=== PATIENT | female | born 1980 | race Caucasian/White ===

== ENCOUNTER 2022-07-02 13:08 | Emergency (ER) | payer OTHER, SELFPAY ==
[2022-07-02 13:18] VITALS: BP 122/76; PULSE 85; RESP 16; TEMP 36.3; O2SAT 96
--- NOTE | 2022-07-02 13:51 | W.ED.GENAD ---
Discharge Plan Discharge Details Chief Complaint: Orthopedic Clinical Impression: Acute pain of right knee Primary Care Provider: [facility] Provider: Ross Shankar Home Meds and New Rx's Prescriptions: No Action ketorolac 10 mg tablet 10 mg PO DAILY PRN (Reason: pain) Qty: 15 1RF Aimovig Autoinjector 70 mg/mL auto-injector 140 mg SC QMONTH Label Comments: 07/06/21 Per pt. 140 mg [facility]. meclizine 25 mg tablet,chewable 25 mg PO BID valacyclovir [Valtrex] 500 MG tablet 500 mg PO DAILY methocarbamol 500 mg tablet 750 mg PO QID PRN albuterol sulfate 90 mcg/actuation HFA aerosol inhaler 2 puff IH QID PRN duloxetine [Cymbalta] 30 mg capsule,delayed release(DR/EC) 120 mg PO DAILY omeprazole 20 mg Tablet,Delayed Release (Dr/Ec) 20 mg PO DAILY Medical Decision Making 41-year-old female presents today for evaluation of right-sided knee pain. Patient states that 3 days ago on Saturday she was walking slipped and hit her knee on the corner of a stack of plywood. She has had pain since then. Had notable swelling. She has been taking Tylenol and Motrin without improvement. She denies numbness or tingling. She has pain with ambulation. No other complaints at this time. No radiation of the pain otherwise. Patient demonstrates swelling and mild edema just below the knee on the right. Mild bruising there as well. Tenderness over the right proximal nava as well as the tibial plateau on the medial and lateral component. No tenderness over the patella or the distal femur. Concern for potential tibial plateau injury versus notable bony contusion. We will get an x-ray for further evaluation,, monitor closely and reassess. 3:04 PM X-ray negative for acute process however the patient's notable pain especially with ambulation I do feel that we need to definitively rule out a tibial plateau fracture. We will get a noncontrast CT scan. My colleague Dr. Shah will follow-up on the results. FINDINGS: BONES: No acute fracture is present. No bony destructive lesion is seen. JOINTS: The knee is normally aligned. No joint effusion is seen. SOFT TISSUE: Normal. IMPRESSION: Unremarkable radiographs of the right knee. Sign Out Yes HPI General Date/Time Provider Initiated Documentation: 07/02/22 13:15. HPI Narrative: 41-year-old female presents today for evaluation of right-sided knee pain. Patient states that 3 days ago on Saturday she was walking slipped and hit her knee on the corner of a stack of plywood. She has had pain since then. Had notable swelling. She has been taking Tylenol and Motrin without improvement. She denies numbness or tingling. She has pain with ambulation. No other complaints at this time. No radiation of the pain otherwise. Related Data Home Medications Medication Instructions Recorded Confirmed valacyclovir 500 mg tablet 500 mg PO DAILY 12/23/15 07/02/22 (Valtrex) albuterol sulfate 90 mcg/actuation 2 puff inhalation QID PRN 09/03/19 07/06/20 aerosol inhaler methocarbamol 500 mg tablet 750 mg PO QID PRN 09/03/19 07/02/22 duloxetine 30 mg capsule,delayed 120 mg PO DAILY 09/15/19 07/02/22 release (Cymbalta) ketorolac 10 mg tablet 10 mg PO DAILY PRN pain #15 tabs 10/21/19 07/02/22 erenumab-aooe 70 mg/mL 140 mg subcut QMONTH 07/06/20 07/02/22 subcutaneous auto-injector (Aimovig Autoinjector) meclizine 25 mg chewable tablet 25 mg PO BID 07/06/20 07/02/22 omeprazole 20 mg tablet,delayed 20 mg PO DAILY 07/02/22 07/02/22 release Previous Rx's Medication Instructions Recorded ketorolac 10 mg tablet 10 mg PO DAILY PRN pain #15 tabs 10/21/19 Allergies Allergy/AdvReac Type Severity Reaction Status Date / Time quetiapine Allergy Unknown Verified 07/02/22 13:26 Sulfa (Sulfonamide Allergy Verified 07/02/22 13:26 Antibiotics) General Stated Complaint: Orthopedic BRANDON: 4 Review of Systems All systems reviewed & are unremarkable except as noted in HPI and below PFSH All Active Problems (Updated 07/02/22 @ 15:05 by Ross Shankar DO) Acute pain of right knee (Acute) Vertigo (Acute) Migraine headache without aura (Acute) Medical History ADD (attention deficit disorder) Anogenital herpes simplex virus (HSV) infection High grade squamous intraepithelial lesion on cytologic smear of cervix (HGSIL) Low back pain Major depressive disorder Nicotine dependence Obstructive sleep apnea PTSD (post-traumatic stress disorder) TBI (traumatic brain injury) Social History Smoking/Tobacco Use Status: Never Smoking risk assessment performed?: Yes Alcohol Intake: current Drug use: Occasionally Substance use type: marijuana Household members: spouse Housing: house Number of Children: 0 current occupation: medical intermediate What is your relationship status?: Panel score (0-1 are the most socially isolated patients): 1 Seatbelt use: always Do you feel safe at home: Yes Do you feel safe in your relationship?: Yes Exam Narrative Exam Narrative: 1.Const: Well-nourished, Well-developed, appearing stated age 2.Eyes: PERRL, no conjunctival injection, and symmetrical lids. 3.ENT: Atraumatic external nose and ears. Moist MM. Neck: Symmetric, trachea midline, No thyromegaly. 4.CVS: +S1/S2, No murmurs or gallops. Peripheral pulses 2+ and equal in all extremities. Brisk capillary refill in all extremities. 5.RESP: Unlabored respiratory effort. Clear to auscultation bilaterally. No wheezes rales or rhonchi 6.GI: Soft, Nontender/Nondistended, No hepatosplenomegaly. No guarding or rebound. 7.MSK: Normocephalic, Extremities w/o deformity. No cyanosis or clubbing, Normal movement of all extremities. Patient demonstrates swelling and mild edema just below the knee on the right. Mild bruising there as well. Tenderness over the right proximal nava as well as the tibial plateau on the medial and lateral component. No tenderness over the patella or the distal femur. Concern for potential tibial plateau injury versus notable bony contusion. 8.Skin: Warm, Dry. No rashes or lesions. 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 Sensation grossly intact, no focal neurologic deficits. 10.Psych: (AAO) x3. Appropriate mood and affect Course Vital Signs Vital signs: Vital Signs Temperature 36.3 C L 07/02/22 13:18 Pulse 85 07/02/22 13:18 Respiratory Rate 16 07/02/22 13:18 Blood Pressure 122/76 07/02/22 13:18 Pulse Oximetry 96 07/02/22 13:18 Temperature 36.3 C L 07/02/22 13:18 Temperature Source Tympanic 07/02/22 13:18 Pulse 85 07/02/22 13:18 Respiratory Rate 16 07/02/22 13:18 Respiratory Effort Non-Labored 07/02/22 13:24 Blood Pressure 122/76 07/02/22 13:18 Blood Pressure Position Sitting 07/02/22 13:18 Pulse Oximetry 96 07/02/22 13:18 Oxygen Delivery Method Room Air 07/02/22 13:18 Oxygen Flow Rate 0 07/02/22 13:18 Pain Level 0 07/02/22 13:24 PAWSS Have you Been Recently Intoxicated or Drunk Within the Last 30 days?: No Have you Ever Experienced Previous Episodes of Alcohol Withdrawal?: No Have you ever Experienced Withdrawal Seizures?: No Have you ever Experienced Delirium Tremens(DT)s?: No Have you ever undergone Alcohol Rehabilitation Treatment (i.e, inpt ot outpatient treatment programs)?: No Have you ever Experienced Blackouts?: No Have you ever Combined Alcohol with other Downers within the last 90 days?: No Have you ever Combined Alcohol with any other Substance of Abuse during the last 90 days?: No Result: 0
[2022-07-02] MEDS: Acetaminophen 500 MG TAB 1000 MG PO (14:00)
[2022-07-02] MEDS: Ibuprofen 800 MG TAB PO (14:00)
--- NOTE | 2022-07-02 14:05 | DI.RAD_ITS ---
Exam(s) XR KNEE RT 3V AP,LAT,JEFFY EXAM: XR KNEE RT 3V AP,LAT,JEFFY CLINICAL HISTORY: fall, pain at medial and lat tib plat. TECHNIQUE: 2D digital imaging was performed. Three views. COMPARISON: No exams were available for comparison FINDINGS: BONES: No acute fracture is present. No bony destructive lesion is seen. JOINTS: The knee is normally aligned. No joint effusion is seen. SOFT TISSUE: Normal. IMPRESSION: Unremarkable radiographs of the right knee. DATA REPOSITORY: RADIATION DOSE DELIVERED:
--- NOTE | 2022-07-02 16:15 | DI.CT_ITS ---
Exam(s) CT LOWER EXTREMITY RT WO EXAM: CT LOWER EXTREMITY RT WO CLINICAL HISTORY: attn knee, suspect tib plat fx. TECHNIQUE: Imaging Protocol: Axial computed tomography images with coronal and sagittal reformatted images were created and reviewed. COMPARISON: CR XR KNEE RT 3V AP,LAT,JEFFY from 07/02/2022 FINDINGS: Bones: The osseous structures and articular surfaces are intact. There is no evidence of fracture or dislocation. Bony alignment is satisfactory. No osteomyelitic changes are identified. There is no evidence of joint space narrowing or cystic degeneration seen. No lytic or sclerotic lesions are marisol ntified. Minimal joint effusion. Soft Tissues: Anterior soft tissue swelling. IMPRESSION: Anterior soft tissue swelling. No evidence of fracture. RADIATION DOSE DELIVERED: 206.3mGy.cm Total DLP 206.3mGy.cm Total DLP DATA REPOSITORY: All CT scans at this facility are submitted to the National Radiology Data Registry (NRDR) Dose Index Registry (DIR) with the [employer] (A[employer]). RADIATION OPTIMIZATION: All CT scans at this facility use at least one of these dose optimization te chniques: automated exposure control; mA and/or kV adjustment per patient size (includes targeted exa ms where dose is matched to clinical indication); or iterative reconstruction.
--- NOTE | 2022-07-02 16:36 | ED.PROG_ITS ---
Date of service: 07/02/22 Time of Service: 15:30 Medical Decision Making 1530 -- please see Dr. Shankar's note for initial presentation, exam and plan. Case endorsed to follow-up on CT lower extremity imaging results. 1630 -- CT negative for fracture. Will place an Kiran wrap and provide crutches. Given orthopedic follow-up information if needed. Usual and customary return precautions given. Medical Records Medical records reviewed: Yes I reviewed the patient's medical records. Imaging Data Radiologic Study: Radiologist's impression: CT LOWER EXTREMITY RT WO CLINICAL HISTORY: ? attn knee, suspect tib plat fx. ? TECHNIQUE:? Imaging Protocol: Axial computed tomography images with coronal and sagittal reformatted images were created and reviewed. COMPARISON:? CR XR KNEE RT 3V AP,LAT,JEFFY from 07/02/2022 FINDINGS: Bones:? The osseous structures and articular surfaces are intact. There is no evidence of fracture or dislocation. Bony alignment is satisfactory.? No? osteomyelitic changes are identified.? There is no evidence of joint space narrowing or cystic degeneration seen. No lytic or sclerotic lesions are identified. ? Minimal joint effusion. Soft Tissues:? Anterior soft tissue swelling. IMPRESSION: Anterior soft tissue swelling.? No evidence of fracture. Sign Out Yes Sign Out Sign Out Data: Sign Out Comment: Right knee pain, x-ray negative, getting CT scan to rule out tibial plateau fracture. Recommend outpatient NSAIDs, crutches. Last updated by Ross Shankar DO at 07/02/22 15:06 Discharge Plan Disposition Patient Disposition: Home Condition: Stable Discharge Details Clinical Impression: Contusion of right knee Primary Care Provider: [facility] Provider: Nona Shah Home Meds and New Rx's Prescriptions: Continued ketorolac 10 mg tablet 10 mg PO DAILY PRN (Reason: pain) Qty: 15 1RF Aimovig Autoinjector 70 mg/mL auto-injector 140 mg SC QMONTH Label Comments: 07/06/21 Per pt. 140 mg monthly [facility]. meclizine 25 mg tablet,chewable 25 mg PO BID valacyclovir [Valtrex] 500 MG tablet 500 mg PO DAILY methocarbamol 500 mg tablet 750 mg PO QID PRN albuterol sulfate 90 mcg/actuation HFA aerosol inhaler 2 puff IH QID PRN duloxetine [Cymbalta] 30 mg capsule,delayed release(DR/EC) 120 mg PO DAILY omeprazole 20 mg Tablet,Delayed Release (Dr/Ec) 20 mg PO DAILY Discharge Instructions Instructions: Knee Pain (ED) Additional Instructions: Your imaging today is reassuring and shows no evidence of fracture. Rest, ice and elevate your right knee as much as possible. Use your crutches to help with ambulation. You can apply an Kiran wrap to help with compression and pain relief. Alternate Tylenol and ibuprofen as needed and directed for pain. Follow-up with your primary care doctor for reevaluation and for referral to orthopedics if needed. Return immediately to the emergency department if you develop any worsening or concerning symptoms. Referrals: Robert Pagan MD [ [facility] STAFF PHYSICIAN] - Discharge Data Discharge Date/Time-TO BE ENTERED AT DEPARTURE: 07/02/22 17:02 Discharge Physician: Nona Shah
== END 2022-07-02 17:02 | disposition home or self-care (01) ==
PROVIDERS: Emergency Provider Physician Assistant; PCP Nurse Practitioner Family
DX: S80.01XA Contusion of right knee, initial encounter (principal); R60.0 Localized edema; W18.40XA Slipping, tripping and stumbling without falling, unspecified, initial encounter; W22.09XA Striking against other stationary object, initial encounter; Y93.01 Activity, walking, marching and hiking
CPT/HCPCS: 73562; 99284; 73700; 99282

== ENCOUNTER 2023-08-16 15:04 | Emergency (ER) | payer OTHER, SELFPAY ==
[2023-08-16 15:11] VITALS: BP 123/90; PULSE 77; RESP 20; TEMP 36.3; O2SAT 98
--- NOTE | 2023-08-16 15:30 | RT.EKG_ITS ---
APPROVED REPORT Exam: Resting ECG Reason for Exam: shortness of breath Patient Location: E HR:72 bpm ECG Measurements Heart Rate 72 AXIS ID 146 P 67 QRSd 80 QRS 21 QT 376 T 25 QTc 412 Conclusion Sinus rhythm...normal P axis, V-rate 60- 99 Low voltage, precordial leads...precordial leads <1.0mV
--- NOTE | 2023-08-16 15:32 | W.ED.GENAD ---
HPI General Stated Complaint: GenMedical Mode of arrival: ambulatory. BRANDON: 3 Date/Time Provider Initiated Documentation: 08/16/23 15:12. Limitations to Documentation: no limitations. Information obtained by: patient. History of Present Illness cough moderate day(s) (3) intermittent No relieving factors improve symptom(s), No exacerbating factors reported cough and shortness of breath; denies chest pain and fever/chills none Related Data Home Medications Medication Instructions Recorded Confirmed valacyclovir 500 mg tablet 500 mg PO DAILY 12/23/15 07/02/22 (Valtrex) albuterol sulfate 90 mcg/actuation 2 puff inhalation QID PRN 09/03/19 07/06/20 aerosol inhaler methocarbamol 500 mg tablet 750 mg PO QID PRN 09/03/19 07/02/22 duloxetine 30 mg capsule,delayed 120 mg PO DAILY 09/15/19 07/02/22 release (Cymbalta) ketorolac 10 mg tablet 10 mg PO DAILY PRN pain #15 tabs 10/21/19 07/02/22 erenumab-aooe 70 mg/mL 140 mg subcut QMONTH 07/06/20 07/02/22 subcutaneous auto-injector (Aimovig Autoinjector) meclizine 25 mg chewable tablet 25 mg PO BID 07/06/20 07/02/22 omeprazole 20 mg tablet,delayed 20 mg PO DAILY 07/02/22 07/02/22 release amoxicillin 875 mg-potassium 1 tab PO BID #14 tabs 08/16/23 clavulanate 125 mg tablet prednisone 20 mg tablet 60 mg (3 x 20 mg) PO DAILY 4 days 08/16/23 #12 tabs Previous Rx's Medication Instructions Recorded ketorolac 10 mg tablet 10 mg PO DAILY PRN pain #15 tabs 10/21/19 amoxicillin 875 mg-potassium 1 tab PO BID #14 tabs 08/16/23 clavulanate 125 mg tablet prednisone 20 mg tablet 60 mg (3 x 20 mg) PO DAILY 4 days 08/16/23 #12 tabs Allergies Allergy/AdvReac Type Severity Reaction Status Date / Time quetiapine Allergy Unknown Verified 07/02/22 13:26 Sulfa (Sulfonamide Allergy Verified 07/02/22 13:26 Antibiotics) Review of Systems All systems reviewed & are unremarkable except as noted in HPI and below Constitutional Constitutional: Denies chills, Denies fever(s) and Denies weakness Cardiovascular Cardiovascular: Denies chest pain and Reports dyspnea Respiratory Respiratory: Reports cough and Reports dyspnea Gastrointestinal Gastrointestinal: Denies abdominal pain, Denies nausea and Denies vomiting Musculoskeletal Musculoskeletal: Denies joint swelling Neurologic Neurologic: Denies weakness PFSH All Active Problems (Updated 08/16/23 @ 17:02 by Dudley Feliz MD) URI (upper respiratory infection) (Acute) Shortness of breath (Acute) Vertigo (Acute) Migraine headache without aura (Acute) Medical History ADD (attention deficit disorder) Anogenital herpes simplex virus (HSV) infection High grade squamous intraepithelial lesion on cytologic smear of cervix (HGSIL) Low back pain Major depressive disorder Nicotine dependence Obstructive sleep apnea PTSD (post-traumatic stress disorder) TBI (traumatic brain injury) Social History Smoking/Tobacco Use Status: Never Smoking risk assessment performed?: Yes Alcohol Intake: current Drug use: Occasionally Substance use type: marijuana Household members: spouse Housing: house Number of Children: 0 current occupation: medical long term What is your relationship status?: Panel score (0-1 are the most socially isolated patients): 1 Seatbelt use: always Do you feel safe at home: Yes Do you feel safe in your relationship?: Yes Course Vital Signs Vital signs: Vital Signs Temperature 36.3 C L 08/16/23 15:11 Pulse 77 08/16/23 15:11 Respiratory Rate 20 08/16/23 15:11 Blood Pressure 123/90 08/16/23 15:11 Pulse Oximetry 98 08/16/23 15:11 Temperature 36.3 C L 08/16/23 15:11 Temperature Source Temporal Artery Scan 08/16/23 15:11 Pulse 77 08/16/23 15:11 Respiratory Rate 20 08/16/23 15:11 Respiratory Effort Normal 08/16/23 15:16 Blood Pressure 123/90 08/16/23 15:11 Blood Pressure Position Sitting 08/16/23 15:11 Pulse Oximetry 98 08/16/23 15:11 Oxygen Delivery Method Room Air 08/16/23 15:11 Oxygen Flow Rate 0 08/16/23 15:11 Medical Decision Making 42 yo female with hx of ptsd, former smoker, who states when she gets sick with uri's she uses inhalers, who comes in with 5 days of ear fullness and malaiase and 3 days of dyspnea and cough. Denies fevers, chills, chest pain. Arrives stable speaking in full sentences. She has apical wheezing bilaterally otherwise clear lungs, no murmurs, soft nontender abdomen, normal appearing tm's bilaterally. Suspect viral uri, will obtain flu and covid poc tests given she has had symptoms for 5 days, and also obtain ekg/troponin given her shortness of breath to evaluate for myocarditis. She is wells low and perc negative so doubt PE. Will give duoneb and solumedrol and check cbc, cmp and obtian cxr to evaluate for infiltrate. labs unremarkable and xray unremarkable, pt feels better wheezing now resolved in apices. Given almost a week of sinusitis symptoms will start on augmentin, she is stable for d/c, advised to f/u with pcp and return precautions given Differential Diagnosis Differential Diagnosis: covid, asthma, pneumonia Medical Records Medical records reviewed: Yes I reviewed the patient's medical records. Imaging Data Radiologic Study: Attestation: I personally reviewed and interpreted this imaging study as follows: Imaging: X-Ray Radiologist's impression: no acute findings Lab Data Lab results reviewed: Yes I reviewed the patient's lab results. ECG Data Attestation: I personally reviewed and interpreted this ECG (s) as follows: Prior ECG tracings: not available for review Interpretation: sinus rate of 72, pr 146 no stemi Quality:SDOH Health Related Social Needs: No Data to Display Discharge Plan Disposition Patient Disposition: Home Condition: Stable Discharge Details Clinical Impression: Shortness of breath, URI (upper respiratory infection) Primary Care Provider: [facility] Provider: Dudley Feliz Home Meds and New Rx's Prescriptions: New prednisone 20 mg tablet 60 mg PO DAILY 4 Days Qty: 12 0RF amoxicillin-pot clavulanate 875-125 mg tablet 1 tab PO BID Qty: 14 0RF Continued ketorolac 10 mg tablet 10 mg PO DAILY PRN (Reason: pain) Qty: 15 1RF Aimovig Autoinjector 70 mg/mL auto-injector 140 mg SC QMONTH Patient Comments: 12/2/21 Per pt. 140 mg monthly [facility]. meclizine 25 mg tablet,chewable 25 mg PO BID valacyclovir [Valtrex] 500 MG tablet 500 mg PO DAILY methocarbamol 500 mg tablet 750 mg PO QID PRN albuterol sulfate 90 mcg/actuation HFA aerosol inhaler 2 puff IH QID PRN duloxetine [Cymbalta] 30 mg capsule,delayed release(DR/EC) 120 mg PO DAILY omeprazole 20 mg Tablet,Delayed Release (Dr/Ec) 20 mg PO DAILY Discharge Instructions Instructions: Upper Respiratory Infection (ED) Additional Instructions: your blood work and xray did not show concerning findings if not feeling better next week follow up with your primary care provider if you feel more ill, have worsening trouble breathing or severe chest pain return to the emergency department
[2023-08-16] MEDS: methylPREDNISolone SUCC 125 MG VIAL IVP (15:46)
[2023-08-16] MEDS: Albuterol/Ipratropium 3 ML UPD VIAL UPD (15:46)
[2023-08-16] MEDS: Normal Saline 1,000 ML 1000 ML IV (15:56)
[2023-08-16 16:02] LABS: Abs Immature Grans 0.03 10^3/uL (0.0-0.06); Absolute Basophil Count 0.05 10^3/uL (0.0-0.2); Absolute Eosinophil Count 0.12 10^3/uL (0.0-0.7); Absolute Lymphocyte Count 1.95 10^3/uL (1.2-3.4); Absolute Monocyte Count 1.03 10^3/uL (0.1-0.8); Absolute Neutrophil Count 3.87 10^3/uL (1.2-6.7); Basophils % 0.7; Eosinophils % 1.7; HCT 39.3 % (36.0-46.0); HGB 13.3 g/dL (11.2-15.7); Immature Grans % 0.4; Lymphocytes % 27.7; MCH 32.7 pg (27.0-33.0); MCHC 33.8 % (32.0-36.0); MCV 97 fL (80-95); MPV 9.2 fL (8.0-11.0); Monocytes % 14.6; Neutrophils % 54.9; Platelet Count 220 10^3/uL (130-400); RBC 4.07 10^6/uL (3.93-5.22); RDW 12.3 % (11.7-14.6); WBC 7.05 10^3/uL (4.4-10.8)
[2023-08-16 16:18] LABS: HCG Qual (Serum) Negative
[2023-08-16 16:19] LABS: ALT 46 U/L (14-59); AST 18 U/L (15-37); Albumin 3.6 g/dL (3.4-5.0); Alkaline Phosphatase 67 U/L (46-116); Anion Gap 7.2 mmol/L (3-11); BUN 11 mg/dL (7-18); Bilirubin, Total 0.2 mg/dL (0.2-1.0); CO2 25.8 mmol/L (21.0-32.0); CREATININE 0.9 mg/dL (0.55-1.02); Calcium 8.7 mg/dL (8.5-10.1); Chloride 106 mmol/L (98-107); Estimated GFR 82.88 (mL/min/1.73m2); Glucose 87 mg/dL (74-106); Magnesium 2.1 mg/dL (1.8-2.4); Potassium 3.8 mmol/L (3.5-5.1); Sodium 139 mmol/L (136-145); Total Protein 7.2 g/dL (6.4-8.2); Troponin I < 50 ng/L (< or =60)
--- NOTE | 2023-08-16 16:19 | DI.RAD_ITS ---
Exam(s) XR CHEST 2V PA LATERAL EXAM: XR CHEST 2V PA LATERAL CLINICAL HISTORY: cough, dyspnea. TECHNIQUE: 2D digital imaging was performed. COMPARISON: No exams were available for comparison FINDINGS: 2 views: Heart size is normal. The mediastinum is not widened. Lungs are clear. No infiltrates nor pleural effusions. IMPRESSION: No acute pulmonary findings. DATA REPOSITORY: RADIATION DOSE DELIVERED:
[2023-08-16] MEDS: Albuterol HFA 8 GM 60 PUFF INH IH (17:14)
[2023-08-16] MEDS: Amoxicillin 875/Clav. 125 TAB PO (17:14)
[2023-08-16 17:16] VITALS: BP 123/90; PULSE 77; RESP 20; TEMP 36.3; O2SAT 98
== END 2023-08-16 17:18 | disposition home or self-care (01) ==
PROVIDERS: Emergency Provider Emergency Medicine; PCP Nurse Practitioner Family
DX: R06.02 Shortness of breath (principal); R51.9 Headache, unspecified; H92.09 Otalgia, unspecified ear; J06.9 Acute upper respiratory infection, unspecified; Z79.899 Other long term (current) drug therapy
CPT/HCPCS: 80053; 87426; 93005; 94640; 96361; 96374; 99285; 71046; 83735; 84484; 84703; 85025; 93010; 99284; J2930; J7620